=== PATIENT | male | born 1960 | race African-American/Black ===

== ENCOUNTER 2019-11-30 13:57 | Emergency (ER) | payer MEDICAID ==
[~2019-11-30] VITALS: Ht 170.2 cm; Wt 56.7 kg
--- NOTE | 2019-11-30 14:14 | Emergency Room Report ---
History of Present Illness General Chief Complaint: Abdominal pain Source: Patient, Family Member Present Illness HPI Disclaimer: Please note that this report is being documented using DRAGON technology. This can lead to erroneous entry secondary to incorrect interpretation by the dictating instrument. HPI: 59-year-old male history of pancreatitis presents for evaluation of abdominal pain. Symptoms started last night. The patient continues to drink alcohol and was recently admitted to [facility] for acute pancreatitis. Denies fever, chills. States the pain is in the epigastrium left upper quadrant radiating to the lower chest. Denies shortness of breath aside from baseline asthma symptoms. Denies new cough. Denies diarrhea, hematochezia. Notes nausea and vomiting. Denies fever or chills. Denies history of abdominal surgery. Patient tested negative for COVID-19 early October at [facility]. PMH: Pancreatitis, asthma PSH: Denied Allergies: Codeine rash Social Hx: Daily drinking, daily smoking Allergies: Coded Allergies: CODEINE (Verified Allergy, Unknown, 11/30/19) Review of Systems All Other Systems: negative except mentioned in HPI Physical Exam General: Awake and alert, appears uncomfortable HEENT: NC/AT. EOMI. Cardiovascular: RRR. S1 and S2 normal. No murmur appreciated Resp: Normal work of breathing. No cough, wheezing or crackles appreciated Abdomen: Abdomen is soft, nondistended. Tender palpation in the epigastrium, left upper quadrant without Nelson's point tenderness. No tenderness in lower quadrants. No masses palpable. No rebound. Mild guarding in the epigastrium. Skin: Intact. No abrasions, laceration or rash over the exposed skin MSK: Normal tone and bulk. Moving all extremities. No obvious deformity. Neuro: Awake and alert. Mentating appropriately. Procedures Critical Care Time Critical Care Time Total critical care time: Approximately 45 minutes Due to a high probability of clinically significant, life threatening deterioration, the patient required the highest level of preparedness to intervene emergently and I personally spent this critical care time directly and personally managing the patient. This critical care time included obtaining a history, examining the patient, pulse oximetry, ordering and reviewing studies , ordering treatments, evaluating response to treatment and updating management plan as needed, frequent reassessment and discussion with other providers as well as arranging for ultimate disposition. This critical to care time was performed to assess and manage the high probability of life-threatening deterioration that could result in multiorgan failure. This critical care time is separate from the separately billable procedures and treating other patients. Medical Decision Making Diagnostic Impression: Primary Impression: Pancreatitis ER Course This is a 59-year-old male presenting for evaluation of abdominal pain beginning last night. Differential includes but is not limited to GERD, gastroenteritis, pancreatitis, cholecystitis, bowel obstruction, ACS, pneumonia , bronchitis, asthma exacerbation to name a few. He appears uncomfortable with mild guarding in the epigastrium but vital signs are within normal limits. EKG is nonischemic. Will obtain broad labs, chest x-ray, CT of the abdomen and pelvis. IV fluids, pain medication, antiemetics ordered. 1700: CT scan shows pancreatic head inflammation consistent with nonnecrotizing and uncomplicated pancreatitis. Ultrasound did not show any evidence of gallstones or other findings. Labs have returned within normal limits. Bilirubin slightly elevated and lipase greater than 1000 consistent with pancreatitis. Urinalysis unremarkable. On reevaluation the patient states his pain was significantly improved. No longer nauseated. He was drinking juice at bedside and wished to be discharged home. I did offer the patient admission for acute pancreatitis however he declined. I will discharge with antiemetics, antacids, pain medication. He is to follow-up with his PMD to discuss the 2 admissions for pancreatitis and his drinking habits. 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 No history of withdrawal seizures or DTs. Patient is stable for outpatient follow-up and was instructed to return to the ED with new or worsening symptoms. He understands and agrees with the treatment plan. Laboratory Tests Test 11/30/19 14:30 11/30/19 15:00 White Blood Count 9.7 K/UL (4.8-10.8) Red Blood Count 5.07 M/UL (4.70-6.10) Hemoglobin 17.4 G/DL (14.2-18.0) Hematocrit 51.8 % (42.0-52.0) Mean Corpuscular Volume 102 FL (80-99) H Mean Corpuscular Hemoglobin 34.3 PG (27.0-31.0) H Mean Corpuscular Hemoglobin Concent 33.6 G/DL (32.0-36.0) Red Cell Distribution Width 14.4 % (11.6-14.8) Platelet Count 231 K/UL (150-450) Mean Platelet Volume 7.3 FL (6.5-10.1) Neutrophils (%) (Auto) 77.9 % (45.0-75.0) H Lymphocytes (%) (Auto) 16.2 % (20.0-45.0) L Monocytes (%) (Auto) 4.7 % (1.0-10.0) Eosinophils (%) (Auto) 0.2 % (0.0-3.0) Basophils (%) (Auto) 1.0 % (0.0-2.0) Sodium Level 138 MMOL/L (136-145) Potassium Level 3.9 MMOL/L (3.5-5.1) Chloride Level 101 MMOL/L (98-107) Carbon Dioxide Level 27 MMOL/L (21-32) Anion Gap 10 mmol/L (5-15) Blood Urea Nitrogen 6 mg/dL (7-18) L Creatinine 0.9 MG/DL (0.55-1.30) Estimated Glomerular Filtration Rate > 60 mL/min (>60) Glucose Level 98 MG/DL (74-106) Calcium Level 9.6 MG/DL (8.5-10.1) Total Bilirubin 1.4 MG/DL (0.2-1.0) H Direct Bilirubin 0.2 MG/DL (0.0-0.3) Aspartate Amino Transferase (AST) 24 U/L (15-37) Alanine Aminotransferase (ALT) 20 U/L (12-78) Alkaline Phosphatase 174 U/L (46-116) H Troponin I 0.001 ng/mL (0.000-0.056) Total Protein 7.2 G/DL (6.4-8.2) Albumin 3.9 G/DL (3.4-5.0) Globulin 3.3 g/dL Albumin/Globulin Ratio 1.2 (1.0-2.7) Lipase 1085 U/L (73-393) H Urine Color Jacki Urine Appearance Clear Urine pH 7 (4.5-8.0) Urine Specific [place] 1.015 (1.005-1.035) Urine Protein 2+ (NEGATIVE) H Urine Glucose (UA) Negative (NEGATIVE) Urine Ketones 4+ (NEGATIVE) H Urine Blood 2+ (NEGATIVE) H Urine Nitrite Negative (NEGATIVE) Urine Bilirubin Negative (NEGATIVE) Urine Ictotest Negative (NEGATIVE) Urine Urobilinogen 1 MG/DL (0.0-1.0) H Urine Leukocyte Esterase 1+ (NEGATIVE) H Urine RBC 2-4 /HPF (0 - 0) H Urine WBC 0-2 /HPF (0 - 0) Urine Squamous Epithelial Cells Occasional /LPF Urine Bacteria Occasional /HPF (NONE) EKG Diagnostic Results EKG Time: 14:06 Rate: bradycardiac Rhythm: NSR ST Segments: no acute changes Other Impression Sinus bradycardia, slight right axis, normal intervals, no ST segment changes. Rhythm Strip Diag. Results Rhythm Strip Time: 14:06 EP Interpretation: yes Rate: 56 Rhythm: NSR, no PVC's, no ectopy CT/MRI/US Diagnostic Results CT/MRI/US Diagnostic Results : Impression Impression: Slight swelling of pancreatic head and uncinate process and slight infiltration of the immediately adjacent peripancreatic fat. Findings are consistent with mild nonnecrotizing pancreatitis, and correlate with stated clinical history of such. Limited assessment of the GI tract, due to lack of enteric contrast administration Subcentimeter low-attenuation right renal lesions, too small to characterize, most likely benign simple cysts. No further follow-up necessary Dictated By: Jeff Garcia MD Electronically Signed By: Jeff Garcia MD Signed Date/Time 11/30/19 1628 Disposition: HOME, SELF-CARE Condition: Improved Scripts Hydrocodone Bit/Acetaminophen 7.5-325* (NORCO 7.5-325*) 1 Each Tablet 1 TAB ORAL Q6H PRN for For Pain, #12 TAB 0 Refills Prov: Aleks Cruz MD 11/30/19 Ondansetron Odt* (ZOFRAN ODT*) 4 Mg Tab.rapdis 4 MG BC EVERY 6 HOURS PRN for Nausea & Vomiting, #20 TAB 0 Refills Prov: Aleks Cruz MD 11/30/19 Famotidine* (Pepcid 20mg tablet*) 20 Mg Tablet 20 MG ORAL DAILY, #30 TAB 0 Refills Prov: Aleks Cruz MD 11/30/19 Aleks Cruz MD Nov 30, 2019 14:14
[2019-11-30] MEDS ORDERED: Morphine Sulfate 4mg/ml Inj (IV USE ONLY) IVP ONE ×2 (14:15→16:15)
[2019-11-30] MEDS ORDERED: Omnipaque-300 100ml vial INJ PRN (14:15)
[2019-11-30 14:25] VITALS: BP 162/78
--- NOTE | 2019-11-30 14:25 | NUR ---
ED Nurse Note: Pt wheeled in from home c/o SOB, midsternal chest pain, back pain and upper abd pain with vomiting x 1. All symptoms began today. Pain is 10/10. Pt has hx of pancreatitis. Pt tested negative for covid on 10/22. Respirations even and unlabored on room air. Vitals stable as documented. A+Ox4, speaking in full sentences.
--- NOTE | 2019-11-30 14:33 | NUR ---
ED Nurse Note: blood sent to lab
[2019-11-30 14:41] LABS: EOSINOPHILS % (AUTO) 0.2 % (0.0-3.0); HEMATOCRIT 51.8 % (42.0-52.0); HEMOGLOBIN 17.4 G/DL (14.2-18.0); LYMPHOCYTES % (AUTO) 16.2 % (20.0-45.0); MEAN CORPUSCULAR VOLUME 102 FL (80-99); MONOCYTES % (AUTO) 4.7 % (1.0-10.0); NEUTROPHILS % (AUTO) 77.9 % (45.0-75.0); PLATELET COUNT 231 K/UL (150-450); RED BLOOD COUNT 5.07 M/UL (4.70-6.10); RED CELL DISTRIBUTION WIDTH 14.4 % (11.6-14.8); WHITE BLOOD COUNT 9.7 K/UL (4.8-10.8)
--- NOTE | 2019-11-30 14:53 | NUR ---
ED Nurse Note: pt aware of need for urine specimen
[2019-11-30 14:56] LABS: ANION GAP 10 mmol/L (5-15); BLOOD UREA NITROGEN 6 mg/dL (7-18); CALCIUM 9.6 MG/DL (8.5-10.1); CARBON DIOXIDE 27 MMOL/L (21-32); CHLORIDE 101 MMOL/L (98-107); CREATININE 0.9 MG/DL (0.55-1.30); POTASSIUM 3.9 MMOL/L (3.5-5.1); SODIUM 138 MMOL/L (136-145)
[2019-11-30 15:08] LABS: ALANINE AMINOTRANSFERASE 20 U/L (12-78); ALBUMIN 3.9 G/DL (3.4-5.0); ALBUMIN/GLOBULIN RATIO 1.2 (1.0-2.7); ALKALINE PHOSPHATASE 174 U/L (46-116); ASPARTATE AMINO TRANSFERASE 24 U/L (15-37); BILIRUBIN,TOTAL 1.4 MG/DL (0.2-1.0)
[2019-11-30 15:09] LABS: BILIRUBIN,DIRECT 0.2 MG/DL (0.0-0.3)
[2019-11-30 15:22] LABS: APPEARANCE,URINE CLEAR; BILIRUBIN, URINE NEGATIVE (NEGATIVE); COLOR,URINE AMBER; GLUCOSE, URINE (UA) NEGATIVE (NEGATIVE); KETONES,URINE 4+ (NEGATIVE); LEUKOCYTE ESTERASE ,URINE 1+ (NEGATIVE); NITRITE,URINE NEGATIVE (NEGATIVE); PH,URINE 7 (4.5-8.0); PROTEIN,URINE 2+ (NEGATIVE); UROBILINOGEN,URINE 1 MG/DL (0.0-1.0)
[2019-11-30] MEDS ORDERED: Morphine Sulfate 4mg/ml Inj (IV USE ONLY) ONE (16:08)
--- NOTE | 2019-11-30 16:26 | Diagnostic Imaging Report ---
Clinical Indication: Abdominal pain Technique: No oral contrast utilized, per emergency room physician request IV administration nonionic contrast. Venous phase spiral acquisition obtained through the abdomen and pelvis. Multiplanar reconstructions were generated. Total dose length product 161 mGycm. CTDIvol(s) 3 mGy. Dose reduction achieved using automated exposure control Comparison: none Findings: There is very slight swelling of the pancreatic head and is made process. There is some infiltration of the peripancreatic fat surrounding the pancreatic head and uncinate process. No organized fluid collections are demonstrated. The pancreas enhances normally. The gallbladder is unremarkable. No biliary ductal dilatation. The liver is unremarkable. The spleen, adrenals, are unremarkable. There is for abnormal rotation of the left kidney, the hilum of which is rotated laterally. There is a circumaortic left renal vein incidentally noted. Tiny subcentimeter low-attenuation lesions are seen in the right kidney. No pelvic mass or adenopathy. Lack of enteric contrast limits assessment of the GI tract. No evidence of colonic diverticulosis or diverticulitis. No small bowel distention. No free or loculated intraperitoneal gas or fluid is evident. The appendix is not definitely visualized, but no findings to suggest acute appendicitis are evident. Included lung bases are clear. The bones are unremarkable. Impression: Slight swelling of pancreatic head and uncinate process and slight infiltration of the immediately adjacent peripancreatic fat. Findings are consistent with mild nonnecrotizing pancreatitis, and correlate with stated clinical history of such. Limited assessment of the GI tract, due to lack of enteric contrast administration Subcentimeter low-attenuation right renal lesions, too small to characterize, most likely benign simple cysts. No further follow-up necessary The CT scanner at [facility] is accredited by the [employer] and the scans are performed using protocols designed to limit radiation exposure to as low as reasonably achievable to attain images of sufficient resolution adequate for diagnostic evaluation.
[2019-11-30] MEDS ORDERED: ONDANSETRON ODT4 MG BC (16:45)
[2019-11-30] MEDS ORDERED: FAMOTIDINE20 MG ORAL (16:45)
[2019-11-30] MEDS ORDERED: NORCO 7.5-3251 EACH ORAL (16:45)
--- NOTE | 2019-11-30 16:57 | Diagnostic Imaging Report ---
Indication: Abdominal pain, abnormal liver function tests Technique: Francois-scale and duplex images of the upper abdomen were obtained Comparison: No comparison sonograms. Reference made to CT scan performed 20 minutes earlier Findings: Gallbladder is unremarkable, without stones, wall thickening, nor pericholecystic fluid. Sonographic Nelson's sign is negative. Common bile duct measures 2 mm in diameter. No intrahepatic biliary ductal dilatation. Liver demonstrates normal echogenicity, no focal abnormality. Portal vein and hepatic veins are patent. Pancreas is unremarkable. Spleen is unremarkable. Left kidney measures 9.9 cm in length. Right kidney measures 11.4 cm length. Both kidneys demonstrate normal echogenicity. There is no hydronephrosis. No focal abnormality . Non-aneurysmal abdominal aorta . Impression: Negative
[2019-11-30 17:20] VITALS: BP 152/76
--- NOTE | 2019-11-30 17:20 | NUR ---
ER DISCHARGE NOTE: Patient is cleared to be discharged per ERMD, pt is aox4, on room air, with stable vital signs. pt was given dc and prescription instructions, pt was able to verbalize understanding, pt id band and iv site removed without complications. pt is able to ambulate with steady gait. pt took all belongings.
--- NOTE | 2019-11-30 17:55 | Diagnostic Imaging Report ---
Indication: Shortness of breath Technique: One view of the chest Comparison: none Findings: Lungs and pleural spaces are clear. Heart size is normal. Impression: No acute process
== END 2019-11-30 17:20 | disposition home or self-care (01) ==
LOC: EMR 14:15
DX: K85.90 Acute pancreatitis without necrosis or infection, unspecified (principal); Z88.6 Allergy status to analgesic agent; R00.1 Bradycardia, unspecified; R06.02 Shortness of breath
CPT/HCPCS: 36415; 71045; 74177; 76700; 80053; 81003; 82248; 83690; 84484; 85025; 93005; 96361; 96374; 96375; 96376; J2270; J2405; J7030; Q9967; S0028; Z7502; 99291